=== PATIENT | female | born 1975 | race American Indian/Alaskan Native ===

== ENCOUNTER 2017-06-30 08:35 | Day surgery (SDC) | payer OTHER ==
--- NOTE | 2017-06-30 09:43 | Short Stay Summary ---
Short Stay Documentation Date of service: 06/30/17 Narrative H&P: Pt is a 42yo BF LMP 05/09/17 presents for permanent sterilization - History Principal diagnosis: Desires permanent sterilization H&P: obtained from office Past Medical History: hypertension Past Surgical History: No surgical history Social history: no significant social history, - Allergies and Medications Current Medications: Allergies No Known Allergies Allergy (Unverified 06/24/17 12:23) Home Medications Medication Instructions Recorded Confirmed Last Taken Type Nebivolol HCl [Bystolic] 5 mg PO DAILY 06/24/17 06/24/17 Unknown History - Physical exam General appearance: no acute distress Integumentary: no rash HEENT: Atraumatic Lungs: Clear to auscultation Breasts: deferred Heart: Regular rate Gastrointestinal: normal Female Genitourinary: deferred Rectal Exam: deferred Extremities: no ischemia Neurological: Normal gait, Normal speech - Brief post op/procedure progress note Date of procedure: 06/30/17 Pre-op diagnosis: Desires permanent sterilization Post-op diagnosis: same Procedure: 1. Laproscopic Bilateral Tubal Ligation 2. IUD removal Anesthesia: GETA Findings: Normal uterus. Normal tubes and ovaries bilaterally. Normal appendix. Surgeon: DELON JAMA Estimated blood loss: minimal Pathology: list (IUD) Specimen disposition: to lab Condition: stable - Hospital course Hospital course: Unremarkable. - Disposition Condition at discharge: Good Disposition: DC-01 TO HOME OR SELFCARE - Discharge Diagnoses (1) Contraception management Status: Acute Qualifiers: Contraceptive encounter type: sterilization Qualified Code(s): Z30.2 - Encounter for sterilization Short Stay Discharge Plan Activity: no restrictions Diet: regular Wound: open to air, keep clean and dry Follow up with: CISCO FLETCHER MD [Primary Care Provider] - 7 Days DELON JAMA MD [Staff Physician] - 14 Days Prescriptions: HYDROcodone/APAP 5-325 [[place] 5/325] 1 each PO Q6HR PRN #20 tablet PRN Reason: Pain
[2017-06-30 09:49] LABS: Hematocrit 36.2 % (30.3-42.9); Hemoglobin 12.5 gm/dl (10.1-14.3)
[2017-06-30] MEDS ORDERED: ANCEF/STERILE WATER 2 GM/20 ML 2 GM/20 ML SYRINGE IV NR (10:00)
[2017-06-30] MEDS ORDERED: LACTATED RINGERS 1,000 ML IV SCH (10:00)
[2017-06-30] MEDS ORDERED: TORADOL IV PRN (10:19)
[2017-06-30] MEDS ORDERED: PERCOCET 5/325 PO PRN (10:19)
[2017-06-30] MEDS ORDERED: DILAUDID IV PRN (10:19)
[2017-06-30] MEDS ORDERED: SUBLIMAZE ONE (10:20)
[2017-06-30] MEDS ORDERED: XYLOCAINE MPF 2% ONE (10:20)
[2017-06-30] MEDS ORDERED: ROMAZICON IV ONE (10:20)
[2017-06-30] MEDS ORDERED: DIPRIVAN 10 MG/ML IV ONE (10:20)
--- NOTE | 2017-06-30 10:21 | Anesthesia Consultation ---
Anesthesia Consult and Med Hx Date of service: 06/30/17 - Airway Anesthetic Teeth Evaluation: Good ROM Head & Neck: Adequate Mental/Hyoid Distance: Adequate Mallampati Class: Class II Intubation Access Assessment: Probably Good - Pulmonary Exam CTA: Yes - Cardiac Exam Cardiac Exam: RRR - Pre-Operative Health Status ASA Pre-Surgery Classification: ASA2 Proposed Anesthetic Plan: General - Pulmonary Hx Asthma: Yes (triggered by allergies, last treated 09/2016) - Cardiovascular System Hx Hypertension: Yes (x 2 yrs) - Central Nervous System Hx Psychiatric Problems: No - Other Systems Hx Cancer: No
--- NOTE | 2017-06-30 10:21 | Anesthesia Day of Surgery ---
Anesthesia Day of Surgery - Day of Surgery Patient Examined: Yes Patient H&P Reviewed: Yes Patient is NPO: Yes
[2017-06-30] MEDS ORDERED: MARCAINE 0.5% 30 ML INFILTRATI ONE (10:40)
[2017-06-30] MEDS ORDERED: VERSED IV NR (11:00)
[2017-06-30] MEDS ORDERED: PEPCID PO NR (11:00)
[2017-06-30] MEDS ORDERED: DECADRON ONE (11:20)
[2017-06-30] MEDS ORDERED: ZOFRAN ONE (11:20)
[2017-06-30] MEDS ORDERED: QUELICIN ONE (11:20)
[2017-06-30] MEDS ORDERED: NEOSTIGMINE ONE (11:41)
[2017-06-30] MEDS ORDERED: ROBINUL ONE (11:41)
--- NOTE | 2017-06-30 11:56 | Operative Report ---
Operative Report Operative Report: PREOPERATIVE DIAGNOSIS: Desires permanent sterilization POSTOPERATIVE DIAGNOSIS: Same OPERATIVE PROCEDURE: 1. Laparoscopic bilateral tubal ligation. 2. IUD removal SURGEON: Kam Quiroga MD ANESTHESIA: Gen. endotracheal intubation ANESTHESIOLOGIST: Dr. Gipson ESTIMATED BLOOD LOSS: Less than 10 mL FINDINGS: Normal uterus. Normal tubes and ovaries bilaterally. Normal appendix. COMPLICATIONS: None COUNTS: Correct x3. PROCEDURE: After the patient was correctly identified, and after general anesthesia was administered, the patient was prepped and draped in usual sterile fashion and placed in dorsal lithotomy position. First, the bladder was emptied using a straight catheter. Next, a speculum was placed in the vaginal vault and the anterior lip of the cervix was grasped using a single- tooth tenaculum. The IUD string was grasped, and the IUD was removed without difficulty. The uterine manipulator was then placed and the tenaculum and speculum were removed. Attention was then turned to the abdomen where first a periumbilical incision was made using a skin knife, and the Optiview trocar was inserted under direct visualization. After an adequate amount of abdominal insufflation, visualization of the pelvic organs found the uterus to be normal, and the tubes and ovaries to be normal bilaterally. Next, the left fallopian tube was grasped using the Kleppingers, and after identifying the fimbriated end of the left tube, this tube was cauterized in 3 continuous places along the proximal portion of the left tube. The same procedure was performed on the right fallopian tube after first identifying the fimbriated end of the right tube. This tube was also cauterized in 3 continuous places along the proximal portion of the right tube. At this point, the procedure was then considered complete. All instruments were removed from the abdomen. The abdomen was deflated and the periumbilical incision was closed using 0 Vicryl suture in a [id number] configuration on the fascia, followed by 4-0 Monocryl suture in sub-cuticular fashion on the skin. The incision was also infiltrated using 0.5% Marcaine solution. The uterine manipulator was removed. The patient tolerated the procedure well and was transferred to recovery room stable condition. The IUD was sent to pathology.
[2017-06-30 13:09] VITALS: BP 148/84
--- NOTE | 2017-06-30 13:26 | Post Anesthesia Evaluation ---
- Post Anesthesia Evaluation Patient Participated: Yes Airway Patent: Yes Stable Respiratory Function: Yes Nausea/Vomiting: No Temp > 96.8F: Yes Pain Manageable: Yes Adequeate Hydration: Yes Anesthesia Complications: No Block Receding Appropriately: Not Applicable Patient on Ventilator: No
== END 2017-06-30 13:42 | disposition home or self-care (01) ==
LOC: OR 08:35
PROVIDERS: ATTEND Obstetrics & Gynecology
DX: Z30.2 Encounter for sterilization (principal); I10 Essential (primary) hypertension; J45.909 Unspecified asthma, uncomplicated; Z79.899 Other long term (current) drug therapy
CPT/HCPCS: 36415; 58301; 58670; 81025; 85014; 85018; 88300; J0330; J0690; J1100; J2250; J2405; J2704; J2710; J3010; J7120; 88302